=== PATIENT | female | born 1990 | race Caucasian/White ===

== ENCOUNTER 2018-03-13 22:31 | Emergency (ER) | payer SELFPAY ==
[2018-03-13 22:32] VITALS: BP 136/96; PULSE 78; RESP 16; TEMP 36.7; O2SAT 98; BMI 42.3
[2018-03-13] MEDS: Ziprasidone IM 20 MG/ML VIAL IM (22:52)
[2018-03-14] VITALS (21 sets, daily range): BP systolic 100–142; BP diastolic 52–90; PULSE 50–70; RESP 12–18; O2SAT 96–98
[2018-03-14 00:07] LABS: Absolute Lymphocyte Count 2.76 X10^3/ul (0.83-4.51); Absolute Neutrophil Count 8.4 X10^3/uL (2.0-7.7); Basophil# 0.03 X10^3/uL; Basophil% 0.3 % (0-1); Eosinophil# 0.04 X10^3/uL; Eosinophils% 0.3 % (0-5); Hematocrit 43.9 % (37-47); Hemoglobin 14.5 g/dl (12.0-15.0); Lymphocyte # 2.76 X10^3/ul (4.0); Lymphocyte % 23.9 % (19-41); Mean Corpuscular Hgb 29.3 pg (27.0-32.0); Mean Corpuscular Volume 88.7 fL (81-99); Monocyte# 0.33 X10^3/uL; Monocyte% 2.9 % (0-10); Neutrophil # 8.36 X10^3/uL (2.7-7.7); Neutrophil % 72.4 % (47-70); Platelet Count 394 K/mm3 (150-450); RBC Distribution Width CV 13.2 % (11.6-14.6); RBC Distribution Width SD 42.7 fl (35.1-43.9); Red Blood Count 4.95 M/mm3 (4.2-5.4); White Blood Count 11.5 K/mm3 (4.4-11.0)
[2018-03-14 00:09] LABS: POSITIVE COUNT NO; POSITIVE DIFFERENTIAL NO; POSITIVE MORPHOLOGY NO
[2018-03-14 00:15] LABS: Anion Gap 6 (5-15); BUN 17 mg/dL (7-18); BUN/Creat Ratio 18.5 RATIO (10-20); Calcium,Total 8.6 mg/dL (8.5-10.1); Chloride 109 mmol/L (98-107); Creatinine, Serum 0.92 mg/dL (0.55-1.02); EST Glomerular Filtration Rate 77 mL/min (>60); Est Glom Filt Rate - Afr Amer 94 mL/min (>60); Estimated Creatinine Clearance 78.61 ml/min; Glucose 89 mg/dL (74-106); Potassium 3.4 mmol/L (3.5-5.1); Sodium Level 143 mmol/L (136-145)
[2018-03-14 00:25] LABS: Pregnancy, Serum, hCG Quali. NEGATIVE Negative (0-9 Nonpreg)
[2018-03-14 01:07] LABS: Amphetamine Urine VISTA POSITIVE (<1000 ng/mL); Barbiturate Urine VISTA NEGATIVE (< 200 ng/mL); Benzodiazepine Urine VISTA NEGATIVE (< 200 ng/mL); Cocaine Urine VISTA NEGATIVE (< 300 ng/mL); Ecstacy Urine VISTA POSITIVE (< 500 ng/mL); Methadone Urine VISTA NEGATIVE (< 300 ng/mL); PCP Urine VISTA NEGATIVE (< 25 ng/mL); THC Urine VISTA NEGATIVE (< 50 ng/mL); Vista UDS pH Range 5
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
--- NOTE | 2018-03-14 04:14 | EKG12_ITS ---
Test Reason : [facility] [place] Blood Pressure : / mmHG Vent. Rate : 049 BPM Atrial Rate : 049 BPM P-R Int : 120 ms QRS Dur : 106 ms QT Int : 438 ms P-R-T Axes : 057 061 057 degrees QTc Int : 395 ms Sinus bradycardia with sinus arrhythmia Otherwise normal ECG Confirmed by LORY PAIGE, ROBERTO ([id number]), editorial project manager ROSEMARY YOO ([id number]) on 03/17/2018 3:18:30 PM Referred By: ANY Confirmed By:ROBERTO HENLEY MD
[2018-03-14 04:23] LABS: Bacteria 0 SEEN /hpf (None Seen)
[2018-03-14 04:24] LABS: Color, Urine Yellow (Yellow); Glucose, Dipstick Normal (Normal); Ketone-Dipstick 5 mg/dl (Negative); Leukocyte Esterase-Dipstick 100 /ul (Negative); Nitrite-Dipstick Negative (Negative); Occult Blood-Urine 150 /ul (Negative); Protein-Dipstick 30 mg/dl (Negative); Specific Gravity, Urine 1.025 (1.002-1.030); Urine Clarity Clear (Clear); Urine Urobilinogen Normal (Normal)
[2018-03-14 04:31] LABS: Urine Bilirubin Dipstick 1 mg/dL (Negative)
[2018-03-14 04:33] LABS: Squamous Epithelial Cells - UA 10-25 SEEN /hpf (5-10); White Blood Cells 0-5 SEEN /hpf (0-5)
[2018-03-14 04:34] LABS: Calcium Oxalate Crystals Ur 1+ /hpf (<or=2+); Mucous, Urine 4+ /hpf (<or=2+); Red Blood Cells-Urine 0-5 SEEN /hpf (0-5)
[2018-03-14 04:44] LABS: AST(SGOT) 10 U/L (15-37); Alanine Aminotransfer ALT/SGPT 22 U/L (13-56); Albumin, Serum 3.5 g/dL (3.2-5.0); Alkaline Phosphatase 83 U/L (45-117); Bilirubin, Direct 0.09 mg/dL (0.00-0.30); Globulin 3.8 g/dL (2.2-4.2); Protein, Total 7.3 g/dL (6.4-8.2)
--- NOTE | 2018-03-14 07:23 | EKG12_ITS ---
Test Reason : [facility] Blood Pressure : / mmHG Vent. Rate : 063 BPM Atrial Rate : 063 BPM P-R Int : 128 ms QRS Dur : 104 ms QT Int : 442 ms P-R-T Axes : 055 063 059 degrees QTc Int : 452 ms Sinus rhythm with marked sinus arrhythmia Otherwise normal ECG Confirmed by LORY PAIGE, ROBERTO ([id number]), photograph editor ROSEMARY YOO ([id number]) on 03/17/2018 3:18:42 PM Referred By: ANY Confirmed By:ROBERTO HENLEY MD
--- NOTE | 2018-03-14 09:25 | ED.RN ---
CALLED [facility] AT 0900 TO CHECK ON PATIENTS TRANSFER. NO ANSWER AT [facility] SO I LET A MESSAGE.
--- NOTE | 2018-03-14 09:47 | ED.RN ---
SPOKE WITH LUIZ AT [facility], SHE STATED THAT THE MEDICAL DOCTOR WILL BE IN TO REVIEW PATIENTS INFORMATION AND THERE IS ALSO A WAITING LIST AND IT WOULD PROBABLY BE LATER THIS AFTERNOON.
--- NOTE | 2018-03-14 11:45 | ED.RN ---
CALLED [facility] AND SPOKE WITH LUIZ, SHE STATED THAT THE DOCTOR WAS REVIEWING THE PATIENT'S CHART.
--- NOTE | 2018-03-14 12:13 | ED.RN ---
Pt resting in bed. Family just arrived. Pt has been repositioning self in bed. Pt does not show any s/s of distress. Resps even and unlabored. Sitter also at bedside.
--- NOTE | 2018-03-14 14:40 | ED.RN ---
KERI FROM CRISIS CALLED STATING THAT HE CALLED [facility] AND THE PATIENT WAS ACCEPTED BUT THERE ARE NO BEDS SO PT IS ON THE WAITING LIST.
--- NOTE | 2018-03-14 17:06 | ED.RN ---
PT YELLING AND CRYING ABOUT NOT ABLE TO USE THE PHONE, THE HOSPITAL POLICIES, EVERY TIME I CLOSE MY EYES I SEE MY MOTHER PT YELLING AT STAFF AND PT'S SISTER IN ROOM. PT REQUESTED THE SITTER BE REMOVED FROM THE ROOM, THIS NURSE EXPLAINED THE SITTER IS PART OF THE POLICY OF [facility]. IF I HEAR ABOUT YOUR POLICIES ANYMORE, I'M SICK OF IT. PT DOES NOT WANT ATIVAN TO CALM HER, IT MAKES ME SLEEP
== END 2018-03-14 23:49 ==
LOC: ED 03-14 01:01
PROVIDERS: Emergency Provider Emergency Medicine
DX: R45.851 Suicidal ideations (principal); F15.90 Other stimulant use, unspecified, uncomplicated; E66.9 Obesity, unspecified
CPT/HCPCS: 80048; 80076; 80307; 80320; 81001; 84703; 85025; 93005; 96372; 99284; G0480; J3486

== ENCOUNTER 2018-07-17 22:54 | Emergency (ER) | payer MEDICAID, SELFPAY ==
[2018-07-17 22:54] VITALS: BP 124/91; PULSE 125; RESP 14; TEMP 37.2; O2SAT 97; BMI 43.2
--- NOTE | 2018-07-17 23:10 | RAD_ITS ---
STUDY: X-RAY - RIGHT RADIUS AND ULNA REASON FOR EXAM: Female, 27 years old. Puncture wounds from a dog bite. TECHNIQUE: 2 view(s) of the forearm. COMPARISON: None. FINDINGS: There is no demonstrated soft tissue swelling. Normal visualized radius. Normal visualized ulna. There is soft tissue swelling and gas in the soft tissues of the medial aspect of the proximal forearm. RAD/Forearm 2 Views IMPRESSION: 1. Soft tissue injury. 2. No demonstrated acute osseous changes. Electronically Signed: Isaac Wiggins MD at 23:26 EST Tel , Service support ,
--- NOTE | 2018-07-17 23:13 | ED.DCSUM_ITS ---
- ER Visit Summary Date of Service: 07/17/18 Chief Complaint: Dog bite History of Present Illness: The patient is a 27 F who was bit by her roommates dog on July 11 and ton. She has old wounds noted to her abdomen and right hip. She has recent bite wounds to the right forearm from this evening. She is right-hand dominant. Physical Examination: Vital signs significant only for heart rate of 125. Patient sitting upright in bed and is tearful. Head and neck examination otherwise unremarked. Heart is tachycardic and regular. Lungs sounds clear. Abdomen is soft with no focal tenderness. She is old abrasions noted to the left lower abdominal wall with surrounding ecchymosis. Extremity examination reveals old abrasions to the right lateral hip. She has multiple small (less than 4 mm) wounds to the right forearm with minimal bleeding. She has strong distal pulses and can wiggle fingers. Test Results: Right forearm x-ray shows no evidence of radiopaque foreign body and no fracture per my read. Emergency Department Course and Treatment: Wounds were cleansed and dressing is applied. Patient is given Naprosyn, oxycodone, and Augmentin. Patient be given prescription for Augmentin and naproxen. She is to follow-up for wound check within the next week. Treatment Plan: [] Disposition: Discharge Impression: Dog bites This note was generated with [employer]IT dictation software. It may contain incorrect words, spelling, and punctuation that were not noted in review of the chart prior to signing ED Disposition - Plan for ED Patient: Referrals: Care Physician,No Primary [Primary Care Provider] -
[2018-07-17] MEDS: Naproxen 500 MG Tablet PO (23:16)
[2018-07-17] MEDS: Amox/Clavulanate 875 MG Tablet PO (23:16)
[2018-07-17] MEDS: oxyCODONE 5 MG Tablet PO (23:17)
--- NOTE | 2018-07-17 23:28 | ED.DEP ---
ED Disposition - Plan for ED Patient: Disposition: Home or Assisted Living Instructions: ED Bite Dog Prescriptions: Amox/Clavulanate Tablet [Augmentin Tablet] 875 mg PO Q12H #10 tablet Naproxen [Naprosyn] 500 mg PO BID PRN PRN #20 tablet PRN Reason: Pain Referrals: Rosie Rojas MD [STAFF PHYSICIAN] - As Needed
[2018-07-17 23:37] VITALS: BP 120/62; PULSE 78; RESP 18
== END 2018-07-17 23:40 | disposition home or self-care (01) ==
LOC: ED 23:35
PROVIDERS: Emergency Provider Emergency Medicine
DX: S50.871A Other superficial bite of right forearm, initial encounter (principal); S30.871A Other superficial bite of abdominal wall, initial encounter; S70.271A Other superficial bite of hip, right hip, initial encounter; W54.0XXA Bitten by dog, initial encounter; Y93.9 Activity, unspecified; Y92.9 Unspecified place or not applicable; Z72.0 Tobacco use
CPT/HCPCS: 73090; 99283

== ENCOUNTER 2022-08-15 20:42 | Emergency (ER) | payer MEDICAID, SELFPAY ==
[2022-08-15 20:43] VITALS: BP 142/79; PULSE 115; RESP 18; TEMP 36.8; O2SAT 99; BMI 49.0
--- NOTE | 2022-08-15 21:01 | EKG12_ITS ---
Test Reason : CP Blood Pressure : / mmHG Vent. Rate : 104 BPM Atrial Rate : 104 BPM P-R Int : 124 ms QRS Dur : 102 ms QT Int : 360 ms P-R-T Axes : 057 057 052 degrees QTc Int : 473 ms Sinus tachycardia Otherwise normal ECG Confirmed by MCKENZIE PAIGE, DARIEL ([id number]), design editor DEEPAK BAJWA ([id number]) on 08/17/2022 7:01:08 AM Referred By: CHERY Confirmed By:ANDREA RINCON MD
--- NOTE | 2022-08-15 21:05 | RAD_ITS ---
EXAM: XR CHEST, 1 VIEW CLINICAL INDICATION: chest pain TECHNIQUE: Frontal view of the chest. This report was created using Big Stage report generation technology. COMPARISON: None. FINDINGS: LUNGS AND PLEURAL SPACES: Unremarkable. No consolidation or edema. No pneumothorax. No effusion. HEART: Unremarkable. Cardiac silhouette not enlarged. MEDIASTINUM: Central airways and mediastinal contour are unremarkable. BONES/JOINTS: Unremarkable. SOFT TISSUES: Unremarkable. RAD/Chest 1 View (Portable) IMPRESSION: No radiographic evidence of acute cardiopulmonary disease. Electronically Signed: Bryn Dick MD at 21:36 EDT ,
[2022-08-15 21:19] LABS: Absolute Lymphocyte Count 3.56 X10^3/uL (0.83-4.51); Absolute Neutrophil Count 6.8 X10^3/uL (2.0-7.7); Basophil# 0.05 X10^3/uL; Basophil% 0.5 % (0-1); Eosinophil# 0.15 X10^3/uL; Eosinophils% 1.4 % (0-5); Hematocrit 39.9 % (37-47); Hemoglobin 13.2 g/dL (12.0-15.0); Lymphocyte # 3.56 X10^3/ul (0.83-4.51); Lymphocyte % 32.4 % (19-41); Mean Corp Hgb Conc 33.1 g/dL (32-36); Mean Corpuscular Hgb 30.1 pg (27.0-32.0); Mean Corpuscular Volume 91.1 fL (81-99); Mean Platelet Vol. 9.1 fl (6.2-12.0); Monocyte# 0.43 X10^3/uL; Monocyte% 3.9 % (0-10); NRBC Flagged by Analyzer 0 % (0-5); Neutrophil # 6.77 X10^3/uL (2.7-7.7); Neutrophil % 61.5 % (47-70); Platelet Count 379 K/mm3 (150-450); RBC Distribution Width CV 12.5 % (11.6-14.6); RBC Distribution Width SD 41.5 fl (35.1-43.9); Red Blood Count 4.38 M/mm3 (4.2-5.4)
[2022-08-15 21:32] LABS: D-Dimer Quantitative (DVT/PE) < 0.27 FEU/ug/m (0.27-0.49)
[2022-08-15 21:35] LABS: Anion Gap 4 (5-15); BUN 20 mg/dL (7-18); BUN/Creat Ratio 24.1 RATIO (10-20); Calcium,Total 8.6 mg/dL (8.5-10.1); Chloride 112 mmol/L (98-107); Creatinine, Serum 0.83 mg/dL (0.55-1.02); EST Glomerular Filtration Rate 84 mL/min (>60); Est Glom Filt Rate - Afr Amer 102 mL/min (>60); Estimated Creatinine Clearance 80.49 ml/min; Glucose 126 mg/dL (74-106); Potassium 3.7 mmol/L (3.5-5.1); Sodium Level 143 mmol/L (136-145); Troponin-I HS (w/2H Reflex) 6 pg/mL (3.0-54.0)
--- NOTE | 2022-08-15 22:38 | ED.VIS.CHEST ---
HPI History of Present Illness Chief Complaint: Chest Pain Narrative Narrative: 31-year-old female from rehab for methamphetamine abuse presenting with general malaise and feeling unwell all day long. She states this evening she took a nap and woke up with chest pain which she describes more as burning and pressure. Patient she states she does not feel short of breath. She has not had any nausea or vomiting. No fevers. She does report that the facility she is at currently has a something going around that appears viral. These patients were tested for COVID and this was negative.. She states they are otherwise doing pretty well with a try to keep him isolated. Patient states he does not have any known cardiac history. She states he has not been to the doctor in a very long time. She states she is a smoker. She also states she think she has a family history cardiac disease. PFSH PFSH Home Medications amoxicillin 875 mg-potassium clavulanate 125 mg tablet 875 mg PO Q12H ##10 07/17/18 [Rx Last Taken Unknown] naproxen 500 mg tablet 500 mg PO BID PRN PRN Pain ##20 07/17/18 [Rx Last Taken Unknown] Allergy/AdvReac Type Severity Reaction Status Date / Time No Known Allergies Allergy Verified 08/15/22 20:45 Social History Smoking Status: Current every day smoker tobacco type: cigarettes ROS ROS ED Constitutional Constitutional ED: Denies chills, fever(s) or sweats Eyes Eyes: Denies blurry vision or change in vision ENT ENT ED: Denies ear pain or sore throat Cardiovascular Cardiovascular: Reports as per HPI Respiratory/Chest Respiratory/Chest: Denies cough, dyspnea or sputum Gastrointestinal Gastrointestinal: Denies abdominal pain, constipation, diarrhea, nausea or vomiting Genitourinary Genitourinary ED: Denies dysuria, hematuria or urinary frequency Musculoskeletal Musculoskeletal: Denies arthralgias, myalgias or neck pain Integumentary Denies abscess, Abrasions or rash Neurologic Neurologic: Denies headache(s), paresthesias or weakness Psychiatric Psychiatric: Denies anxiety, depression, suicidal ideation or suicidal thoughts Endocrine Endocrinology: Denies polydipsia or polyuria EXAM Physical Exam Const Vital Signs: 08/15/22 20:43 08/15/22 21:07 Temperature 98.3 F Temperature Source Temporal Pulse Rate 115 H Respiratory Rate 18 Respiratory Effort Normal Non-Labored Blood Pressure 142/79 H Blood Pressure Mean 100 Pulse Ox 99 Oxygen Delivery Method Room Air Heart Score History: Slightly/Non-Suspicious ECG: Normal Age: </= 45 years Risk Factors: >/= 3 Risk Factors or History of CAD Troponin: </= Normal Limit Score: 2 MDM MDM MDM Narrative Medical decision making narrative: 31-year-old female presenting with chest pain which she states is like burning across her chest. She denies shortness of breath, lightheadedness, dizziness, nausea, vomiting. She does state that she is felt really rundown over the course of the day. She has a history of smoking and she has family history of cardiac disease. Patient also obese. HEART score of 2. Differential diagnosis includes but is not limited to ACS, PE, viral syndrome, pneumonia. Since she states that there is something going around the facility that she has had I think it is most likely something viral but she states she is only had chest pain since 7 PM. CBC to assess white blood cell count, hemoglobin, platelets, differential. BMP to assess renal function, electrolytes. D-dimer because I cannot PERC the patient due to her tachycardia at 115. Chest x-ray to rule out pneumonia. EKG shows a sinus rhythm of 104 bpm without sign of ischemic change or dysrhythmia. My interpretation. Chest x-ray shows no acute process on my interpretation. Radiologist are persistent agrees. CBC shows no leukocytosis. Hemoglobin macular stable. Platelets are normal. Renal function and electrolytes unremarkable. High-sensitivity troponin is 6. D-dimer is negative. Will obtain delta troponin at this is negative patient can go back to her facility. Patient requested something for pain and was offered Toradol because she does not want anything addictive. Patient will be signed out to incoming ED provider for follow-up on delta troponin. If this is negative I feel the patient will be safe for discharge home. Impression: 1. Chest pain Lab Data Labs: Laboratory Results - last 24 hr 08/15/22 08/15/22 08/15/22 21:04 21:04 21:04 WBC 11.0 RBC 4.38 Hgb 13.2 Hct 39.9 MCV 91.1 MCH 30.1 MCHC 33.1 RDW Std Deviation 41.5 RDW Coeff of Ida 12.5 Plt Count 379 MPV 9.1 Immature Gran % (Auto) 0.300 Neut % (Auto) 61.5 Lymph % (Auto) 32.4 [place] % (Auto) 3.9 Eos % (Auto) 1.4 Baso % (Auto) 0.5 Absolute Neuts (auto) 6.8 Absolute Lymphs (auto) 3.56 Nucleated RBC % 0 D-Dimer Quant (PE/DVT) < 0.27 L Sodium 143 Potassium 3.7 Chloride 112 H Carbon Dioxide 27.0 Anion Gap 4 L BUN 20 H Creatinine 0.83 Estim Creat Clear Calc 80.49 Est GFR (MDRD) Af Amer 102 Est GFR (MDRD) Non-Af 84 BUN/Creatinine Ratio 24.1 H Glucose 126 H Calcium 8.6 Troponin I High Sens 6 Radiography Diagnostic Testing: Clinical Impression(s) from Imaging Studies Chest X-Ray 08/15/22 21:05 IMPRESSION: No radiographic evidence of acute cardiopulmonary disease. Electronically Signed: Bryn Dick MD at 21:36 EDT , Discharge Plan Triage Chief Complaint: Chest Pain ED Provider: Andrey Aldridge Dx/Rx/DC Orders Prescriptions: No Action amoxicillin-pot clavulanate 875 MG tablet 875 mg PO Q12H Qty: 10 0RF naproxen 500 MG tablet 500 mg PO BID PRN PRN (Reason: Pain) Qty: 20 0RF Primary Care Provider: Maryan Nunn Referrals: Maryan Nunn MD [Primary Care Provider] -
[2022-08-15 22:51] VITALS: BP 130/79; PULSE 99; RESP 16; O2SAT 98
[2022-08-15] MEDS: Ketorolac 15 MG/ML Vial IV (22:52)
[2022-08-15 23:13] LABS: Reflex Troponin-HS? (from REC) Y
[2022-08-15 23:34] LABS: Troponin-I HS 6 pg/mL (3.0-54.0)
[2022-08-15 23:35] VITALS: BP 150/77; PULSE 99; RESP 18; O2SAT 97
[2022-08-16 00:13] VITALS: BP 152/74; PULSE 104; RESP 25; O2SAT 96
== END 2022-08-16 00:21 | disposition home or self-care (01) ==
PROVIDERS: Emergency Provider Student in an Organized Health Care Education/Training Program; PCP Internal Medicine; Visit Provider Student in an Organized Health Care Education/Training Program
DX: R07.9 Chest pain, unspecified (principal); F17.210 Nicotine dependence, cigarettes, uncomplicated; R53.81 Other malaise
CPT/HCPCS: 71045; 80048; 84484; 85025; 85379; 93005; 96374; 99283; A4216

== ENCOUNTER → 2022-09-04 | Outpatient (CLI) | payer MEDICAID, SELFPAY ==
[2022-09-04 12:57] LABS: Magnesium 2.3 mg/dL (1.6-2.6); Thyroid Stim Hormone (TSH) 2.55 uIU/mL (0.358-3.74)
[2022-09-04 13:14] LABS: HIV - WCH Non-Reactive (Nonreactive)
== END | disposition home or self-care (01) ==
LOC: BIMLAB 10:17
PROVIDERS: Nurse Practitioner Family; PCP Internal Medicine; Referring Provider Internal Medicine; Visit Provider Internal Medicine
DX: F19.11 Other psychoactive substance abuse, in remission (principal); R55 Syncope and collapse
CPT/HCPCS: 36415; 80074; 83735; 84443; 86703

== ENCOUNTER 2022-11-09 12:53 | Emergency (ER) | payer MEDICAID, SELFPAY ==
[2022-11-09 12:55] VITALS: BP 155/86; PULSE 114; RESP 16; TEMP 36.6; O2SAT 98; BMI 45.7
[2022-11-09 14:12] VITALS: BP 133/102; PULSE 109; RESP 18; O2SAT 99
--- NOTE | 2022-11-09 14:12 | ED.RN ---
PT AMBULATED UNASSISTED UP AND DOWN THE HALLWAY. PT TOLERATED WALKING WELL. PT DENIED HAVING ANY PAIN OR ADVERSE SYMPTOMS. PT DENIES ANY NEEDS AT THIS TIME.
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
[2022-11-09 14:13] VITALS: BP 133/102; PULSE 109; RESP 18; O2SAT 99
--- NOTE | 2022-11-09 15:28 | ED.RN ---
AT 1413 THIS RN HANDED PT DISCHARGE PAPERWORK AND EDUCATED HER ON ADDICTION SERVICES AVAILABLE AND ALSO S/S OF ADVERSE REACTIONS TO MONITOR FOR AND SEEK FURTHER CARE FOR. PT TOOK PAPERWORK VERBALIZED SHE UNDERSTOOD AND AMBULATED OUT OF ROOM. UPON HANDING PT DISCHARGE PAPERWORK OFFICER ELISABETH AT BEDSIDE WITH PT. PT DISCHARGED AT 1413.
== END 2022-11-09 14:24 | disposition home or self-care (01) ==
PROVIDERS: Emergency Provider Emergency Medicine; PCP Internal Medicine; Visit Provider Emergency Medicine
DX: T50.901A Poisoning by unspecified drugs, medicaments and biological substances, accidental (unintentional), initial encounter (principal); F17.210 Nicotine dependence, cigarettes, uncomplicated; Z90.49 Acquired absence of other specified parts of digestive tract; F17.290 Nicotine dependence, other tobacco product, uncomplicated
CPT/HCPCS: 99284

== ENCOUNTER → 2022-11-30 | Outpatient (CLI) | payer MEDICAID, SELFPAY ==
[2022-11-30 17:08] LABS: HIV - WCH Non-Reactive (Nonreactive); Syphilis Antibodies Non-reactive
== END | disposition home or self-care (01) ==
LOC: WOBLAB 14:24
PROVIDERS: PCP Internal Medicine; Visit Provider Nurse Practitioner Women's Health
DX: Z11.3 Encounter for screening for infections with a predominantly sexual mode of transmission (principal)
CPT/HCPCS: 36415; 86703; 86704; 86705; 86706; 86707; 86780; 86803; 87340; 87350

== ENCOUNTER 2022-12-17 08:21 | Day surgery (SDC) | payer MEDICAID, SELFPAY ==
[2022-12-17] VITALS (11 sets, daily range): BP systolic 108–140; BP diastolic 55–101; PULSE 53–77; RESP 16–18; TEMP 36.4–36.8; O2SAT 97–100; BMI 45.5
--- NOTE | 2022-12-17 | IMM_PTH ---
PATIENT: SIRIA CHRISTOPHER LOC: [facility] – [place] U#:[id number] AGE/SX: 32/F ROOM: RE12/17/[address]: Dr. Kit Ashby MD : 1990 BED: DIS: 12/17/2022 SPEC #: [id number] RECD: 12/19/22 13:15 STATUS: CHER REQ #: [id number] FRENCH: 12/17/22 00:[address]: Kit Ashby DEPT: IMMUNOHISTOCHEMISTRY RECD BY: Misa Isbell ENTERED: 12/19/22 13:15 SP TYPE: IMMUNO OTHR DR: Dr. Maryan Nunn MD Tissues: UTERINE CERVIX LEEP Procedures: p16 (initial) KI-67 (add) PHYSICIAN & [place] [address] SPECIMEN INFORMATION: Tissue Source: Cervix Clinical Info: Abnormal pap smear Specimen Number: [id number] #2 CPT code: 14516, 82594 METHODOLOGY: Deparaffinized sections of prefer/formalin-fixed tissue or PAP/DQ stained slides are incubated with monoclonal/polyclonal antibodies/oligonucleotide probes. Localization is made via biotin free immunoperoxidase method. Appropriate controls are performed and reacted as expected. Results on target cell population are indicated in the following table: RESULTS: ANTIBODY / CLONE RESULT Block 2 P16 (E6H4) positive, block staining Ki-67 (30-9) positive, high These tests were developed and their performance characteristics determined by [facility]. They may not have been cleared or approved by the U.S. Food and Drug Administration. The FDA has determined that such clearance or approval is not necessary. The above immunohistochemical/dualISH markers are ordered and reviewed by the Pathologist. INTERPRETATION: Cervix, LEEP cone biopsy: Severe squamous dysplasia. SANTO:mary 12/20/2022
[2022-12-17 08:46] LABS: Internal QC Validated? YES +Cl - CLEAR BKGD; Pregnancy, Urine Negative Negative
--- NOTE | 2022-12-17 08:46 | PCM.HP.BLA ---
History and Physical Date of Admission: 12/17/22 Chief complaint: Abnormal Pap smear History present illness: 32-year-old arrives for scheduled LEEP procedure and IUD removal. No medical changes since last seen. All questions answered and consent signed. Obstetric history: with a history of vaginal delivery Past medical history: Anxiety depression Medications: Hydroxyzine, Lamictal, BuSpar, trazodone, Prozac Allergies: Honey bee venom Past surgical history: Appendectomy, tonsillectomy Social history: Currently vaping daily, denies alcohol or drug use Family history: Denies history DVT or PE Review of systems: Besides above pertinent positives a full review of systems was performed and found to be negative Physical exam: Vitals: Pending General: Normal-appearing no acute distress HEENT: Normocephalic/atraumatic no cervical lymphadenopathy Cardiac/respiratory: No use of accessory muscles, nonlabored breathing Abdomen: Soft, nontender, obese Extremities: No peripheral edema normal peripheral pulses Psych: Normal affect, demeanor nonpressured speech Assessment and plan: 32-year-old for LEEP procedure and IUD removal. Educated patient on risk benefits alternatives of the procedure include but are not limited to visceral or vascular injury, prolonged hospitalization, blood loss and need for transfusion, reoperation. Patient state understanding wish to proceed. All questions were answered and consent was signed.
[2022-12-17] MEDS: Lactated Ringers 1,000 ML 120 ML IV (09:01)
--- NOTE | 2022-12-17 09:45 | CONE_PTH ---
PATIENT: SIRIA CHRISTOPHER LOC: [facility] [place] U#:[id number] AGE/SX: 32/F ROOM: RE12/17/[address]: Dr. Kit Ashby MD : 1990 BED: DIS: 12/17/2022 SPEC #: [id number] RECD: 12/17/22 14:33 STATUS: CHER NOLAND #: [id number] FRENCH: 12/17/22 09:[address]: Kit Ashby DEPT: SURGICAL PATHOLOGY RECD BY: Pat Bey ENTERED: 12/18/22 06:46 SP TYPE: Leep Cone WADE DR: Dr. 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 Chronic inflammation. See comment. SJ:mary 12/19/2022 COMMENT Dysplastic changes are noted in all four quadrants. Dysplastic changes also involve endocervical glands. Focal dysplastic changes is noted at ecto- and endocervical resection margin of larger piece (block 2). Focal dysplastic changes are also noted at the deep resection margin (block 3, smaller piece). Actual peripheral margins cannot be assessed as the specimen was received in two pieces. Immunohistochemistry ([id number]) for surrogate HPV marker (p16) supports the above diagnosis. Clinical correlation and appropriate follow up are necessary. Case has been reviewed in consultation with Dr. Hoskins who concurs with the above diagnosis. IDC:AM MICROSCOPIC DESCRIPTION Slides are reviewed. GROSS DESCRIPTION Received in fixative is one container labeled with the patient's name and designated cervical cone and suture dias 12 o'clock. The specimen consists of two thomas, indurated pieces of tissue. The larger piece with suture measures 2.5 x 2.0 x 0.7 cm and the second smaller piece measures 2.0 x 1.0 x 0.5 cm. No mucosal lesion is identified. Non-mucosal surface of moth pieces are inked black. The suture on the large piece is present in the center, the larger piece presumed to consist of 9 to 3 o'clock position and smaller piece presumed to consist of 3 to 9 o'clock position. Patent Chemist sections are submitted as follows: 1 - contain the larger piece, 12 to 3 o'clock, 2 - 9 to 12 o'clock, 3 & 4 - smaller piece, 3 to 6 o'clock and 4 - 6 to 9 o'clock. / SJ:rg 12/18/2022 TC:5 CPT: 74590
[2022-12-17] MEDS: Cefazolin 2 GM in 0.9% Normal Saline 100 ML IV (10:24)
[2022-12-17] MEDS: Iodine/Potassium Iodide 14ML Bottle 1 DRP TOPICAL (10:45)
[2022-12-17] MEDS: FERRIC SUBSULFATE 8 GM SOLN (10:45)
--- NOTE | 2022-12-17 11:14 | DCINST_ITS ---
Discharge Instructions Diet Discharge Diet: No restrictions Activity Discharge Activity: Return to Normal Activity, May Drive, May Shower and - (No tub baths hot tubs or pools for 6 weeks) May resume sexual activity in: 8 weeks Lifting Restrictions: No lifting over 25 pounds for 2 to 3 weeks Dressing / Incision Call your doctor if your incision/area has: Continuous Slow Oozing and Foul Smelling Discharge Call your doctor if you observe: Fever of 101 or Higher, Shortness of breath and Chest pain Follow Up Care Please Follow Up With: Kit Ashby MD When: 2 weeks postoperatively Test Results: Test results from this visit will be discussed in further detail at your follow- up appointment, if applicable. Discharge Plan Admission Attending Provider: Kit Ashby Primary Care Provider: Maryan Nunn Discharge Orders/Prescriptions Prescriptions: No Action buspirone 10 mg tablet 10 mg PO TID epinephrine 0.3 mg/0.3 mL auto-injector 0.3 ml IM ONCE Qty: 2 0RF Rx Instructions: as a single dose; may repeat once fluoxetine 40 mg capsule 40 mg PO DAILY lamotrigine 25 mg tablet 25 mg PO DAILY metronidazole 500 mg tablet 500 mg PO BID Referrals / Follow Up: Maryan Nunn MD [Primary Care Provider] - Disposition Disposition (needs filled in before D/C Order can be placed): Home, Self Care
--- NOTE | 2022-12-17 11:15 | OP.PCM_ITS ---
Report of Operation Date of Procedure: 12/17/22 Pre-Operative Diagnosis: ASCUS cannot rule out high-grade, desires IUD removal Post-Operative Diagnosis: ASCUS cannot rule out high-grade, desires IUD removal Surgery/Procedure Performed:: Exam under anesthesia, IUD removal, loop e lectrical excision procedure Description of Surgical Findings:: Surgeon: Kit Ashby MD Anesthesia: MAC EBL: 20 cc Urine output: 300 cc IV fluids: 500 cc Complications: None Specimen: Cervical conization, 12:00 was marked with silk suture Findings: IUD strings noted and removed IUD intact. Lugol's solution revealed decreased uptake at 12 o'clock position. Consent: Patient with abnormal Pap smear ASCUS cannot rule out high-grade and desires IUD removal scheduled for exam under anesthesia IUD removal and loop electrical excision procedure. Patient understands risk of the procedure include but are not limited to visceral or vascular injury, prolonged hospitalization, blood loss need for transfusion, reoperation. Patient state understanding wish to pr oceed. All questions were answered and consent was signed. Procedure: Patient was brought back to the OR where MAC anesthesia was found to be adequate. 2 g of Ancef were given for infection prophylaxis. Patient prepared and draped in dorsolithotomy position with yellowfin stirrups. IUD strings were noted and IUD was removed with a Nora intact. Local solution was placed over the cervix and above findings were noted. Using loop electrocautery device loop electrical excision procedure was performed, 12:00 portion of the specimen was marked with a silk suture. All portions of the cervical conization sent to pathology. Rollerball electrocautery was used to achieve hemostasis. Good hemostasis was noted and Monsel's was placed over the operative site. Good hemostasis was noted. All counts were correct x2. Patient tolerated procedure well and was brought to recovery in stable condition
[2022-12-17] MEDS: Ketorolac 30 MG/ML Syringe IV (11:46)
== END 2022-12-17 12:22 | disposition home or self-care (01) ==
LOC: SDC 08:21 → AC 08:22
PROVIDERS: Anesthesiology; PCP Internal Medicine; Referring Provider Obstetrics & Gynecology; Visit Provider Obstetrics & Gynecology
PROC: 0UBC7ZZ Excision of Cervix, Via Natural or Artificial Opening (ICD-10-PCS; CPT 57522; principal; 2022-12-17 09:30)
DX: N87.9 Dysplasia of cervix uteri, unspecified (principal); F19.10 Other psychoactive substance abuse, uncomplicated; F31.10 Bipolar disorder, current episode manic without psychotic features, unspecified; Z30.432 Encounter for removal of intrauterine contraceptive device; F43.10 Post-traumatic stress disorder, unspecified; F17.200 Nicotine dependence, unspecified, uncomplicated
CPT/HCPCS: 58301; 57522; 81025; 88307; 88341; 88342; J7120

== ENCOUNTER → 2023-01-10 | Outpatient (CLI) | payer MEDICAID, SELFPAY | END | disposition home or self-care (01) | LOC: WOBLAB 10:48 | PROVIDERS: PCP Internal Medicine; Visit Provider Nurse Practitioner Women's Health | DX: Z11.3 Encounter for screening for infections with a predominantly sexual mode of transmission (principal) | CPT/HCPCS: 36415; 86704; 86705; 86706; 86707; 86803; 87340; 87350 ==